=== PATIENT | female | born 1985 | race Hispanic/Latino ===

== ENCOUNTER 2018-01-05 14:58 | Observation (INO) | payer MEDICAID ==
[~2018-01-05] VITALS: Ht 154.9 cm; Wt 101.6 kg
[~2018-01-05 14:58] MED LIST: PREN-196 PO
[2018-01-05] MEDS ORDERED: ACETAMINOPHEN 325 MG TAB PO ONE (16:45)
[2018-01-05 17:11] LABS: BASOPHILS % (AUTO) 0.4 % (0.0-5.0); EOSINOPHILS % (AUTO) 0.6 % (0.0-8.0); HEMATOCRIT 27.1 % (36-48); LYMPHOCYTES % (AUTO) 22.7 % (21.0-51.0); MEAN CORPUSCULAR HGB CONC 32.7 g/dL (32.0-36.0); MEAN CORPUSCULAR VOLUME 70.3 fL (79-99); NEUTROPHILS % (AUTO) 70.3 % (40.0-77.0); PLATELET COUNT (AUTO) 242 K/uL (130-400); RED BLOOD CELL COUNT(AUTO) 3.85 MIL/uL (4.00-5.50); RED CELL DISTRIBUTION WIDTH 17.5 % (11.0-15.5); WHITE BLOOD COUNT (AUTO) 6.8 K/uL (4.8-10.8)
[2018-01-05] MEDS ORDERED: ACETAMINOPHEN 325 MG TAB ONE (17:19)
[2018-01-05] MEDS ORDERED: TERBUTALINE SULFATE VIAL 1MG/ML SQ SCH (18:30)
[2018-01-05 19:30] VITALS: BP 119/74
[2018-01-05] MEDS ORDERED: MAGNESIUM 4GM PREMIX 100ML 100 ML IV SCH (20:30)
[2018-01-05] MEDS ORDERED: CALCIUM GLUCONATE 1 GM/10 ML VIAL IV PRN (20:30)
[2018-01-05] MEDS ORDERED: CELESTONE SOLUSPAN 6 MG/ML 5ML VIAL ONE (20:30)
[2018-01-05] MEDS ORDERED: MAGNESIUM 4GM PREMIX 100ML 100 ML IV ONE (20:31)
[2018-01-05] MEDS ORDERED: MAGNESIUM SULFATE 1,000 ML IV ONE (20:31)
[2018-01-05] MEDS: CELESTONE SOLUSPAN 6 MG/ML 5ML VIAL IM SCH (20:47)
[2018-01-05] MEDS: AMPICILLIN 2GM+NS 100ML 100 ML IV SCH (20:55)
[2018-01-05] MEDS: LACTATED RINGERS 1000ML 1,000 ML IV SCH (20:55)
[2018-01-05 20:58] LABS: APPEARANCE,URINE Clear (CLEAR); BILIRUBIN,URINE Negative (NEGATIVE); COLOR,URINE Yellow (YELLOW); GLUCOSE, URINE (UA) Negative (NEGATIVE); KETONES,URINE >=80 mg/dL (NEGATIVE); LEUKOCYTE ESTERASE ,URINE Negative (NEGATIVE); NITRATE,URINE Negative (NEGATIVE); OCCULT BLOOD,URINE Trace (NEGATIVE); PH,URINE 6.5 (5.0-8.0); PROTEIN,URINE Negative (NEGATIVE); UROBILINOGEN,URINE 0.2 mg/dL (0.2-1.0)
[2018-01-05] MEDS: MAGNESIUM SULFATE 1,000 ML IV PRN (20:58)
[2018-01-05 21:06] LABS: AMPHET/METH SCREEN,URINE NEGATIVE (NEGATIVE); BARBITURATE SCREEN, URINE NEGATIVE (NEGATIVE); BENZODIAZEPINES SCREEN,URINE NEGATIVE (NEGATIVE); CANNABINOID SCREEN,URINE NEGATIVE (NEGATIVE); COCAINE SCREEN,URINE NEGATIVE (NEGATIVE); OPIATE SCREEN,URINE NEGATIVE (NEGATIVE); PHENCYCLIDINE SCREEN,URINE NEGATIVE (NEGATIVE)
[2018-01-05 21:07] LABS: BACTERIA,URINE None Seen /HPF (None Seen); RBC,URINE 0-1 /HPF (0-1); SQUAMOUS EPITHELIAL CELL,UR 0-2 /HPF (0-2); WBC,URINE None Seen /HPF (0-1)
[2018-01-05] MEDS ORDERED: ACETAMINOPHEN 325 MG TAB PO PRN (23:00)
[2018-01-05] MEDS: ACETAMINOPHEN 325 MG TAB PO PRN (23:14)
[2018-01-06] MEDS ORDERED: PREN1TAB89 PO (00:50)
[2018-01-06] MEDS ORDERED: DOCU-116 PO (00:50)
[2018-01-06] MEDS ORDERED: IRON-23 PO (00:50)
[2018-01-06 00:57] LABS: HEMATOCRIT 25.8 % (36-48); MEAN CORPUSCULAR HEMOGLOBIN 23.4 pg (27.0-33.0); MEAN CORPUSCULAR HGB CONC 33.2 g/dL (32.0-36.0); MEAN CORPUSCULAR VOLUME 70.5 fL (79-99); PLATELET COUNT (AUTO) 215 K/uL (130-400); RED BLOOD CELL COUNT(AUTO) 3.67 MIL/uL (4.00-5.50); RED CELL DISTRIBUTION WIDTH 17.3 % (11.0-15.5)
[2018-01-06] MEDS: AMPICILLIN 2GM+NS 100ML 100 ML IV SCH ×4 (02:20→22:07)
[2018-01-06] MEDS: ACETAMINOPHEN 325 MG TAB PO PRN ×2 (04:38→19:22)
[2018-01-06] MEDS: MAGNESIUM SULFATE 1,000 ML IV PRN (17:33)
[2018-01-06] MEDS: CELESTONE SOLUSPAN 6 MG/ML 5ML VIAL IM SCH (20:45)
[2018-01-07] MEDS: LACTATED RINGERS 1000ML 1,000 ML IV SCH (02:30)
[2018-01-07] MEDS: AMPICILLIN 2GM+NS 100ML 100 ML IV SCH (04:18)
[2018-01-07 07:59] LABS: HEPATITIS Bs ANTIGEN SCREEN P Negative (Negative)
== END 2018-01-07 10:12 | disposition home or self-care (01) ==
LOC: LDH 14:58
PROVIDERS: ADMIT Specialist; ATTEND Specialist
DX: O26.893 Other specified pregnancy related conditions, third trimester (principal); R10.9 Unspecified abdominal pain; M54.5 Low back pain; S30.1XXA Contusion of abdominal wall, initial encounter; W20.8XXA Other cause of strike by thrown, projected or falling object, initial encounter; Y93.89 Activity, other specified; Y92.89 Other specified places as the place of occurrence of the external cause; Y99.8 Other external cause status; Z3A.31 31 weeks gestation of pregnancy
CPT/HCPCS: 36415 ×2; 76819; 80305; 81001; 83735; 85025; 85027; 85384; 86592; 86850; 86900; 86901; 87340; 96365; 96366 ×2; 96372 ×2; A4314; G0378 ×44; J0290 ×6; J0702; J3105 ×2; J3475 ×3; J7120; 96360; 96361

== ENCOUNTER 2018-01-17 09:06 | Observation (INO) | payer MEDICAID ==
[~2018-01-17 09:06] MED LIST changes: +DOCU-116 PO; +IRON-23 PO; +PREN1TAB89 PO
[2018-01-17 09:38] LABS: HEMATOCRIT 30.2 % (36-48); MEAN CORPUSCULAR HEMOGLOBIN 22.4 pg (27.0-33.0); MEAN CORPUSCULAR HGB CONC 31.7 g/dL (32.0-36.0); MEAN CORPUSCULAR VOLUME 70.5 fL (79-99); PLATELET COUNT (AUTO) 237 K/uL (130-400); RED BLOOD CELL COUNT(AUTO) 4.28 MIL/uL (4.00-5.50); RED CELL DISTRIBUTION WIDTH 18.1 % (11.0-15.5); WHITE BLOOD COUNT (AUTO) 11.7 K/uL (4.8-10.8)
[2018-01-17 09:46] LABS: APPEARANCE,URINE Clear (CLEAR); BILIRUBIN,URINE Negative (NEGATIVE); COLOR,URINE Yellow (YELLOW); GLUCOSE, URINE (UA) Negative (NEGATIVE); KETONES,URINE 15 mg/dL (NEGATIVE); LEUKOCYTE ESTERASE ,URINE Trace (NEGATIVE); NITRATE,URINE Negative (NEGATIVE); OCCULT BLOOD,URINE Moderate (NEGATIVE); PH,URINE 5.5 (5.0-8.0); PROTEIN,URINE Trace (NEGATIVE)
[2018-01-17 10:05] LABS: BACTERIA,URINE Rare /HPF (None Seen); MUCUS,URINE Rare LPF (None Seen); SQUAMOUS EPITHELIAL CELL,UR Few /HPF (0-2); WBC,URINE 0-1 /HPF (0-1)
[2018-01-17 11:04] LABS: AMPHET/METH SCREEN,URINE NEGATIVE (NEGATIVE); BARBITURATE SCREEN, URINE NEGATIVE (NEGATIVE); BENZODIAZEPINES SCREEN,URINE NEGATIVE (NEGATIVE); CANNABINOID SCREEN,URINE NEGATIVE (NEGATIVE); COCAINE SCREEN,URINE NEGATIVE (NEGATIVE); OPIATE SCREEN,URINE NEGATIVE (NEGATIVE); PHENCYCLIDINE SCREEN,URINE NEGATIVE (NEGATIVE)
[2018-01-17] MEDS ORDERED: LACTATED RINGERS 1000ML 1,000 ML IV SCH (11:30)
== END 2018-01-17 14:00 | disposition home or self-care (01) ==
LOC: LDH 09:06
PROVIDERS: ADMIT Specialist; ATTEND Specialist
DX: O60.03 Preterm labor without delivery, third trimester (principal); Z3A.33 33 weeks gestation of pregnancy
CPT/HCPCS: 36415; 76819; 80305; 81001; 85027; G0378 ×6; 96360; 96361

== ENCOUNTER 2018-02-22 22:21 | Inpatient (IN) | payer MEDICAID ==
[~2018-02-22] VITALS: Ht 154.9 cm; Wt 102.5 kg
[2018-02-22 22:48] LABS: APPEARANCE,URINE Cloudy (CLEAR); BILIRUBIN,URINE Negative (NEGATIVE); COLOR,URINE Yellow (YELLOW); GLUCOSE, URINE (UA) TRACE mg/dL (NEGATIVE); KETONES,URINE Negative (NEGATIVE); LEUKOCYTE ESTERASE ,URINE Moderate (NEGATIVE); NITRATE,URINE Negative (NEGATIVE); OCCULT BLOOD,URINE Moderate (NEGATIVE); PROTEIN,URINE POS 2+ (NEGATIVE)
[2018-02-22] MEDS ORDERED: LACTATED RINGERS 1000ML 1,000 ML IV ONE (22:54)
[2018-02-22 22:59] LABS: AMORPHOUS SEDIMENT,UR Few /LPF (None Seen); BACTERIA,URINE Moderate /HPF (None Seen); MUCUS,URINE Few LPF (None Seen); SQUAMOUS EPITHELIAL CELL,UR Few /HPF (0-2); WBC,URINE 26-50 /HPF (0-1)
[2018-02-22 23:02] LABS: AMPHET/METH SCREEN,URINE NEGATIVE (NEGATIVE); BARBITURATE SCREEN, URINE NEGATIVE (NEGATIVE); BENZODIAZEPINES SCREEN,URINE NEGATIVE (NEGATIVE); CANNABINOID SCREEN,URINE NEGATIVE (NEGATIVE); COCAINE SCREEN,URINE NEGATIVE (NEGATIVE); OPIATE SCREEN,URINE NEGATIVE (NEGATIVE); PHENCYCLIDINE SCREEN,URINE NEGATIVE (NEGATIVE)
[2018-02-22] MEDS ORDERED: AMPICILLIN 2GM+NS 100ML 100 ML IV ONE (23:09)
[2018-02-22] MEDS ORDERED: NALOXONE HCL 0.4 MG/1 ML ML IV PRN (23:15)
[2018-02-22] MEDS ORDERED: ROPIVACAINE 0.2%200ML EPIDURAL 200 ML EP SCH (23:15)
[2018-02-22] MEDS ORDERED: LACTATED RINGERS 500 ML 500 ML IV PRN (23:15)
[2018-02-22] MEDS ORDERED: EPHEDRINE SULFATE 50 MG/ML AMPULE IVP PRN (23:15)
[2018-02-22] MEDS ORDERED: AMPICILLIN 2GM+NS 100ML 100 ML IV SCH (23:15)
[2018-02-22 23:23] LABS: HEMATOCRIT 26.1 % (36-48); MEAN CORPUSCULAR HEMOGLOBIN 22.1 pg (27.0-33.0); MEAN CORPUSCULAR VOLUME 69.1 fL (79-99); NUCLEATED RED BLOOD CELLS 0.1 % (0.0-0.19); PLATELET COUNT (AUTO) 257 K/uL (130-400); RED BLOOD CELL COUNT(AUTO) 3.78 MIL/uL (4.00-5.50); RED CELL DISTRIBUTION WIDTH 17.9 % (11.0-15.5)
[2018-02-23] MEDS: LACTATED RINGERS 1000ML 1,000 ML IV PRN ×2 (00:23→06:43)
[2018-02-23] MEDS: AMPICILLIN 1GM+NS 50ML 50 ML IV SCH ×2 (03:40→07:29)
[2018-02-23] MEDS ORDERED: OXYTOCIN 10 USP UNITS/ML 20 UNIT in LACTATED RINGERS 1000ML 1,000 ML IV SCH (08:30)
[2018-02-23] MEDS ORDERED: OXYTOCIN-LR 20 UNITS/1000 ML 1,000 ML IV SCH (09:15)
[2018-02-23] MEDS ORDERED: OXYTOCIN 10 USP UNITS/ML ONE ×3 (12:14→17:19)
[2018-02-23] MEDS ORDERED: MEASLES/MUMPS/RUBELLA VACCINE, LIVE 0.5 ML/VIAL SQ PRN (13:15)
[2018-02-23] MEDS ORDERED: BENZOCAINE/LANOLIN/ALOE VERA 60 ML AEROSOL TP PRN (13:15)
[2018-02-23] MEDS ORDERED: ACETAMINOPHEN 325 MG TAB PO PRN (13:15)
[2018-02-23] MEDS ORDERED: LANOLIN 30GM OINTMENT TP PRN (13:15)
[2018-02-23] MEDS ORDERED: DIPH,PERTUSS(ACELL),TET VAC/PF 0.5 ML VIAL IM PRN (13:15)
[2018-02-23] MEDS ORDERED: WITCH HAZEL 1 PAD TP PRN (13:15)
[2018-02-23] MEDS: IBUPROFEN 800 MG TAB PO PRN ×2 (15:12→23:35)
[2018-02-23 15:13] VITALS: BP 144/88
[2018-02-23 16:15] VITALS: BP 129/81
[2018-02-23 20:15] VITALS: BP 120/53
[2018-02-23] MEDS: DOCUSATE SODIUM 100 MG CAP PO SCH (21:31)
[2018-02-23 23:35] VITALS: BP 112/44
[2018-02-24 03:25] VITALS: BP 103/64
[2018-02-24 06:33] LABS: HEMATOCRIT 23.3 % (36-48); MEAN CORPUSCULAR VOLUME 68.6 fL (79-99); PLATELET COUNT (AUTO) 192 K/uL (130-400); RED BLOOD CELL COUNT(AUTO) 3.39 MIL/uL (4.00-5.50); RED CELL DISTRIBUTION WIDTH 17.7 % (11.0-15.5); WHITE BLOOD COUNT (AUTO) 6.2 K/uL (4.8-10.8)
[2018-02-24 07:19] VITALS: BP 118/79
[2018-02-24 07:35] LABS: HEPATITIS Bs ANTIGEN SCREEN P Negative (Negative)
[2018-02-24] MEDS: DOCUSATE SODIUM 100 MG CAP PO SCH (09:01)
[2018-02-24] MEDS: IBUPROFEN 800 MG TAB PO PRN (09:02)
[2018-02-24 11:30] VITALS: BP 130/80
== END 2018-02-24 15:05 | disposition home or self-care (01) | DRG 560 ==
LOC: EDH 22:21 → OBSVTOIN 22:22 → LDH 22:22 → WSH 02-23 15:13
PROVIDERS: ADMIT Specialist; ATTEND Specialist
PROC: 10E0XZZ Delivery of Products of Conception, External Approach (ICD-10-PCS; principal; 2018-02-23)
PROC: 3E0234Z Introduction of Serum, Toxoid and Vaccine into Muscle, Percutaneous Approach (ICD-10-PCS; 2018-02-23)
PROC: 3E0134Z Introduction of Serum, Toxoid and Vaccine into Subcutaneous Tissue, Percutaneous Approach (ICD-10-PCS; 2018-02-23)
DX: O24.420 Gestational diabetes mellitus in childbirth, diet controlled (principal); D64.9 Anemia, unspecified; Z23 Encounter for immunization; Z37.0 Single live birth; Z3A.37 37 weeks gestation of pregnancy; O75.89 Other specified complications of labor and delivery; O99.02 Anemia complicating childbirth; K21.9 Gastro-esophageal reflux disease without esophagitis
CPT/HCPCS: 36415; 80305; 81001; 82120; 85027; 86592; 86850; 86900; 86901; 87340; 90715; A4314; J0290; J2590; J7120